=== PATIENT | female | born 1995 | race Caucasian/White ===

== ENCOUNTER 2018-10-18 14:36 | Emergency (ER) | payer OTHER ==
[~2018-10-18] VITALS: Ht 160 cm; Wt 78.5 kg
[~2018-10-18 14:36] MED LIST: IBUP-1561 PO; METH500T PO
[2018-10-18 14:47] VITALS: BP 151/93; PULSE 74; RESP 16; Ht 160 cm; Wt 78.5 kg
== END 2018-10-18 15:21 | disposition home or self-care (01) ==
LOC: E/R 14:36
DX: M79.604 Pain in right leg (principal); Z91.040 Latex allergy status
CPT/HCPCS: 99283